=== PATIENT | male | born 1995 | race Caucasian/White ===

== ENCOUNTER 2018-08-21 09:25 | Emergency (ER) | payer BC ==
[2018-08-21 09:31] VITALS: RESP 18
[2018-08-21] MEDS ORDERED: ACETAMINOPHEN TAB 500 MG TAB PO STA (09:43)
[2018-08-21] MEDS ORDERED: IPRATROPIUM-ALBUTEROL 3 ML NEB INHALATION STA (09:43)
--- NOTE | 2018-08-21 09:45 | ED ---
General Adult HPI - General Chief complaint: Upper Respiratory Infection Stated complaint: COLD/FLU SYMPTOMS Time Seen by Provider: 08/21/18 09:37 Source: patient, RN notes reviewed Mode of arrival: ambulatory Limitations: no limitations - History of Present Illness Initial comments: Patient is a 22-year-old male presenting to the emergency room today with a chief complaint of sore throat with cough and congestion times one day. Patient states that symptoms started yesterday. Patient does admit to sputum production it's been green in color. Admits to sore throat when he swallows. Patient denies any other complaints currently. Patient admits to history of asthma as a child. States he does not take any medications currently. Patient denies any recent fever, chills, shortness of breath, chest pain, back pain, abdominal pain, nausea or vomiting, headaches or visual changes, or any other complaints. - Related Data Home Medications Medication Instructions Recorded Confirmed Dm/Acetaminophen/Doxylamine [Vicks 2 cap PO Q6H PRN 08/21/18 08/21/18 Nyquil Liquicaps] Guaifen/Phenyleph/Acetaminophn 2 tab PO Q4H PRN 08/21/18 08/21/18 [Mucinex Sinus-Max Severe Cplt] Previous Rx's Medication Instructions Recorded Albuterol Inhaler [Ventolin Hfa 1 - 2 puff INHALATION Q4-6H PRN #1 08/21/18 Inhaler] inhaler Azithromycin [Zithromax Z-pack] 0 mg PO DIRECTED #6 tab 08/21/18 predniSONE 50 mg PO DAILY #5 tab 08/21/18 Allergies Allergy/AdvReac Type Severity Reaction Status Date / Time No Known Allergies Allergy Verified 08/21/18 09:44 Review of Systems ROS Statement: Those systems with pertinent positive or pertinent negative responses have been documented in the HPI. ROS Other: All systems not noted in ROS Statement are negative. Past Medical History Past Medical History: No Reported History History of Any Multi-Drug Resistant Organisms: None Reported Additional Past Surgical History / Comment(s): ankle surg pilonidal cyst Past Psychological History: Anxiety Smoking Status: Never smoker Past Alcohol Use History: None Reported Past Drug Use History: None Reported General Exam - General Exam Comments Initial Comments: General: The patient is awake and alert, in no distress, and does not appear acutely ill. Eye: Pupils are equal, round and reactive to light. Extra-ocular movements are intact. No nystagmus. There is normal conjunctiva bilaterally. No signs of icterus. Ears, nose, mouth and throat: There are moist mucous membranes and no oral lesions. Mild redness to the posterior pharynx. Uvula midline. No exudate. Tolerating oral secretions. Neck: The neck is supple, there is no tenderness or JVD. Cardiovascular: There is a regular rate and rhythm. No murmur, rub or gallop is appreciated. Respiratory: Mild expiratory wheeze bilaterally. respirations are non-labored, breath sounds are equal. No stridor, rales, or rhonchi. Musculoskeletal: Normal ROM, no tenderness. Sensation intact. Strength 5/5. Pulses equal bilaterally 2+. Neurological: A&O x 3. CN II-XII intact, There are no obvious motor or sensory deficits. Coordination appears grossly intact. Speech is normal. Skin: Skin is warm and dry and no rashes or lesions are noted. Psychiatric: Cooperative, appropriate mood & affect, normal judgment. Limitations: no limitations Course Vital Signs 08/21/18 08/21/18 08/21/18 09:28 09:53 10:01 Temperature 99.9 F H Pulse Rate 108 H 101 H 104 H Respiratory 18 Rate Blood Pressure 117/81 O2 Sat by Pulse 97 Oximetry 08/21/18 10:30 Temperature 101.0 F H Pulse Rate 105 H Respiratory 18 Rate Blood Pressure 122/75 O2 Sat by Pulse 98 Oximetry Medical Decision Making - Medical Decision Making Patient's chest x-ray reviewed negative reexamined pneumonia. Strep test was negative. Patient repeat temperature was elevated here in the emergency room is given ibuprofen. Patient was much improvement after breathing treatment. Lung sounds are improved. Was offered for a second treatment. Patient has declined. Patient states that he feels comfortable being discharged home at this time. We'll cover for bronchitis given Zithromax, steroids, abdominal pain. Patient advised return if any symptoms increase worsen or for any other concerns or - Lab Data Lab Results 08/21/18 Range/Units 09:43 Group A Strep Rapid Negative (Negative) Disposition Clinical Impression: Acute bronchitis Disposition: HOME SELF-CARE Condition: Good Instructions: Acute Bronchitis (ED) Additional Instructions: Please use medication as discussed. Please follow-up with family doctor in the next 2 days of symptoms have not improved. Please return to emergency room if the symptoms increase or worsen or for any other concerns. Prescriptions: Albuterol Inhaler [Ventolin Hfa Inhaler] 1 - 2 puff INHALATION Q4-6H PRN #1 inhaler PRN Reason: Cough Azithromycin [Zithromax Z-pack] 0 mg PO DIRECTED #6 tab predniSONE 50 mg PO DAILY #5 tab Is patient prescribed a controlled substance at d/c from ED?: No Referrals: None,Stated [Primary Care Provider] - 1-2 days Time of Disposition: 10:43
--- NOTE | 2018-08-21 10:23 | XR ---
EXAMINATION TYPE: XR chest 2V DATE OF EXAM ORDERED: 08/21/2018 HISTORY: cough. REFERENCE: None. FINDINGS: The lungs are clear. Pleural spaces are clear. Heart size is normal. IMPRESSION: NORMAL CHEST.
[2018-08-21 10:31] VITALS: BP 122/75; PULSE 105; TEMP 101
[2018-08-21] MEDS ORDERED: IBUPROFEN 600 MG TAB PO STA (10:31)
== END 2018-08-21 10:47 | disposition home or self-care (01) ==
LOC: EDSEX → EC 09:25
DX: J20.9 Acute bronchitis, unspecified (principal); J45.909 Unspecified asthma, uncomplicated; Z53.29 Procedure and treatment not carried out because of patient's decision for other reasons
CPT/HCPCS: 71046; 87081; 87430; 94640; 99284